=== PATIENT | female | born 1970 | race American Indian/Alaskan Native ===

== ENCOUNTER 2017-08-10 19:07 | Emergency (ER) | payer MEDICAID ==
[2017-08-10] MEDS ORDERED: CATAPRES ONE (20:21)
[2017-08-10] MEDS ORDERED: CATAPRES PO ONE (20:25)
[2017-08-10 21:45] LABS: BUN/Creatinine Ratio 16; Blood Urea Nitrogen 8 mg/dL (7-17); Calcium 8.7 mg/dL (8.4-10.2); Hemolysis Index 4
[2017-08-10 21:48] LABS: Basophils % (Auto) 0.8 % (0.0-1.8); Eosinophils # (Auto) 0.1 K/mm3 (0.0-0.4); Eosinophils % (Auto) 1.3 % (0.0-4.3); Hematocrit 33.2 % (30.3-42.9); Hemoglobin 10.3 gm/dl (10.1-14.3); Lymphocytes # (Auto) 2.3 K/mm3 (1.2-5.4); Lymphocytes % (Auto) 37.7 % (13.4-35.0); Mean Corpuscular HGB Conc 31 % (30-34); Mean Corpuscular Hemoglobin 27 pg (28-32); Mean Corpuscular Volume 86 fl (79-97); Monocytes # (Auto) 0.6 K/mm3 (0.0-0.8); Monocytes % (Auto) 9.7 % (0.0-7.3); Platelet Count 273 K/mm3 (140-440); Red Blood Count 3.85 M/mm3 (3.65-5.03); Red Cell Distribution Width 15.6 % (13.2-15.2)
[2017-08-10 22:30] LABS: Bilirubin,Urine NEG (Negative); Blood,Urine NEG (Negative); Color,Urine Yellow (Yellow); Mucus,Urine FEW /HPF; Nitrite,Urine NEG (Negative); Protein,Urine <15 mg/dL mg/dL (Negative); Urobilinogen,Urine < 2.0 mg/dL (<2.0)
[2017-08-11 05:20] VITALS: BP 128/90
--- NOTE | 2017-08-11 05:31 | Emergency Department Report ---
ED General Adult HPI - General Chief complaint: High BP Stated complaint: HEADACHE/CHEST CONGESTION Time Seen by Provider: 08/11/17 05:25 Source: patient Mode of arrival: Ambulatory Limitations: No Limitations - History of Present Illness Initial comments: This is a 46 y.o. female presents with elevated blood pressure. History of Hypertension. She went to the dentist yesterday for extraction of wisdom tooth and they couldn't pull it because her blood pressure was elevated. They sent her to the emergency room because her blood pressure reading was 169/109, then 166/106. She admits to stop taking amlodipine 10 mg po daily because she wanted to wean herself off medicine. She noticed her head has been hurting for weeks and thought it was associated with wisdom tooth. Denies visual change, chest pain, palpitations, and dizziness. -: year(s) (history of hypertension) Location: head (headache) Radiation: non-radiation Severity scale (0 -10): 0 Improves with: none Worsens with: none Associated Symptoms: headaches Treatments Prior to Arrival: none - Related Data Previous Rx's Medication Instructions Recorded Last Taken Type amLODIPine [Norvasc] 10 mg PO DAILY 30 Days #30 tab 08/11/17 Unknown Rx Allergies Allergy/AdvReac Type Severity Reaction Status Date / Time acetaminophen [From Tylenol] Allergy Itching Verified 08/10/17 19:50 aspirin Allergy Hives Verified 08/10/17 19:48 diphenhydramine Allergy Itching Verified 08/10/17 19:50 [From Benadryl] Penicillins Allergy Angioedema Verified 08/10/17 19:48 ED Review of Systems ROS: Stated complaint: HEADACHE/CHEST CONGESTION Other details as noted in HPI Constitutional: denies: chills, fever Respiratory: denies: cough, shortness of breath, wheezing Cardiovascular: denies: chest pain, palpitations Gastrointestinal: denies: abdominal pain, nausea, diarrhea Neurological: denies: headache, weakness, paresthesias ED Past Medical Hx - Past Medical History Previous Medical History?: No - Surgical History Past Surgical History?: No - Social History Smoking Status: Never Smoker Substance Use Type: None - Medications Home Medications: Home Medications Medication Instructions Recorded Confirmed Last Taken Type amLODIPine [Norvasc] 10 mg PO DAILY 30 Days #30 tab 08/11/17 Unknown Rx ED Physical Exam - General Limitations: No Limitations General appearance: alert, in no apparent distress - Respiratory Respiratory exam: Present: normal lung sounds bilaterally. Absent: respiratory distress - Cardiovascular Cardiovascular Exam: Present: regular rate, normal rhythm. Absent: systolic murmur, diastolic murmur, rubs, gallop - GI/Abdominal GI/Abdominal exam: Present: soft, normal bowel sounds - Neurological Exam Neurological exam: Present: alert, oriented X3 - Skin Skin exam: Present: warm, dry, intact, normal color. Absent: rash ED Course Vital Signs 08/10/17 08/10/17 08/10/17 19:51 20:38 22:30 Temperature 98 F Pulse Rate 86 80 86 Respiratory 18 18 Rate Blood Pressure 207/123 207/123 Blood Pressure 131/84 [Right] O2 Sat by Pulse 99 98 Oximetry 08/11/17 05:20 Temperature Pulse Rate 69 Respiratory 18 Rate Blood Pressure Blood Pressure 128/90 [Right] O2 Sat by Pulse 98 Oximetry ED Medical Decision Making - Lab Data Result diagrams: 08/10/17 20:33 08/10/17 20:33 - Medical Decision Making This is a 46 y.o. female that presents with elevated blood pressure. Patient is stable and examined by me. EKG obtained with normal sinus rhythm with no ST change. CBC, BMP, HCG, & UA obtained and normal. Received clonidine 0.2 mg po once in ER. Blood pressure 128/90. No acute signs of distress noted. Discussed plan to restart amlodipine with patient and risk of staying off medication. Patient agrees to ED plan of care. Discharged home with amlodipine 10 mg po daily for hypertension. Follow up with PCP in 3 days. Critical care attestation.: If time is entered above; I have spent that time in minutes in the direct care of this critically ill patient, excluding procedure time. ED Disposition Clinical Impression: Hypertension Qualifiers: Hypertension type: essential hypertension Qualified Code(s): I10 - Essential ( primary) hypertension Disposition: - TO HOME OR SELFCARE Is pt being admited?: No Does the pt Need Aspirin: No Condition: Stable Instructions: Hypertension (ED), DASH Eating Plan (ED), Heart Healthy Diet (ED) Additional Instructions: Take medication as prescribed daily. Start low sodium diet. Increase activity daily. Follow up with Primary Care Provider in 3 days. Refer to referrals section if you do not have a primary care provider. Prescriptions: amLODIPine [Norvasc] 10 mg PO DAILY 30 Days #30 tab Referrals: [facility] [Outside] - 3-5 Days [facility] [Outside] - 3-5 Days [facility] [Outside] - 3-5 Days [facility] [Outside] - 3-5 Days Forms: Work/School Release Form(ED) Time of Disposition: 05:43 Print Language: [id number]
== END 2017-08-11 05:48 | disposition home or self-care (01) ==
LOC: ED 19:07
DX: I10 Essential (primary) hypertension (principal); Z88.0 Allergy status to penicillin; Z88.6 Allergy status to analgesic agent
CPT/HCPCS: 36415; 80048; 81001; 84703; 85025; 93005; 93010; 99283